=== PATIENT | female | born 1985 | race African-American/Black ===

== ENCOUNTER 2017-06-22 19:21 | Emergency (ER) | payer OTHER ==
[~2017-06-22] VITALS: Ht 165.1 cm; Wt 70.0 kg
[~2017-06-22 19:21] MED LIST: CIPR500T4 PO; NAPR550 PO; NEEVCAP PO; OXYC-360 PO; PYRI200T4 PO; SENN1TAB11 PO
[2017-06-22] MEDS ORDERED: diphenhydrAMINE HCL 50 MG/ML VIAL IM ONE (19:45)
[2017-06-22] MEDS ORDERED: LORazepam 2 MG/ML VIAL IM ONE (19:45)
--- NOTE | 2017-06-22 20:01 | PD ---
HPI Chief Complaint: Psychiatric Symptoms Time Seen by Provider: 19:25 Travel History International Travel<30 days: No Contact w/Intl Traveler<30days: No Traveled to known affect area: No History of Present Illness HPI 31-year-old female that presents to the ED for evaluation of a crack. Per Ellis act patient apparently going he did argument with family members and started to become very aggressive towards family members. Police was involved in patient was Caleb acted because she was very agitated and aggressive towards family as well as to worse police. Patient had to be restrained and on her way here she hit her head on the window of the Car. She did not lose consciousness. She does have a very superficial cut to her head. On exam she would not really give me any information alert and she is upset because she is going to lose her job because she is here. She does not appear to have any sign of injury other than the head where she has a small bruise and a superficial cut. She denies any homicidal or suicidal ideation. She is distraught and cannot really give me much information. She denies any other medical issues. Again history is limited because the patient being very upset. PFSH Past Medical History Diminished Hearing: No Genitourinary: Yes (STD) ?: Not Past Surgical History Abdominal Surgery: Yes (c- section) Section: Yes Social History Alcohol Use: Yes (socially) Tobacco Use: Yes Substance Use: Yes (marijuana) Allergies-Medications (Allergen,Severity, Reaction): Coded Allergies: No Known Allergies (Verified , 09/06/15) Reported Meds & Prescriptions Reported Meds & Active Scripts Active Pyridium (Phenazopyridine HCl) 200 Mg Tab 200 Mg PO Q8HR PRN Cipro (Ciprofloxacin HCl) 500 Mg Tab 500 Mg PO BID 7 Days Reported Percocet (Oxycodone/Acetaminophen) 5 Mg/325 Mg Tab 1-2 Tab PO Q4-6HPRN FOR PAIN Senna Plus 8.6-50 mg (Senna/Docusate Sodium) 1 Tab Tab 1 Tab PO BIDPRN Anaprox Ds (Naproxen Sodium) 550 Mg Tab 550 Mg PO Q8HPRN 30 Days Pnv-Dha Plus ( Without A W/ Fe Fumar) Cap 1 PO DAILY Review of Systems ROS Limitations: Uncooperative Except as stated in HPI: all other systems reviewed are Neg Physical Exam Exam Limitations: Uncooperative Narrative GENERAL: SKIN: Warm and dry. Patient has some bruising and a very superficial less than 1 cm laceration to her forehead that is very superficial and less than 1 mm deep HEAD: Atraumatic. Normocephalic. EYES: Pupils equal and round 4 mm reactive to light and accommodation. No scleral icterus. No injection or drainage. ENT: No nasal bleeding or discharge. Mucous membranes pink and moist. Tongue is midline. No uvula deviation. NECK: Trachea midline. No JVD. CARDIOVASCULAR: Regular rate and rhythm. No murmurs, S3, S4. RESPIRATORY: No accessory muscle use. Clear to auscultation. Breath sounds equal bilaterally. GASTROINTESTINAL: Abdomen soft, non-tender, nondistended. Hepatic and splenic margins not palpable. MUSCULOSKELETAL: Extremities without clubbing, cyanosis, or edema. No obvious deformities. Full range of motion of the upper and lower extremities bilaterally. 2+ pulses bilaterally. NEUROLOGICAL: Awake and alert. No obvious cranial nerve deficits. Motor grossly within normal limits. Five out of 5 muscle strength in the arms and legs. Normal speech. PSYCHIATRIC: Very anxious mood and affect; insight and judgment questionable Data Data Last Documented VS Vital Signs Date Time Temp Pulse Resp B/P (MAP) Pulse Ox O2 Delivery O2 Flow Rate FiO2 06/22/17 21:08 98.4 87 18 128/60 (82) 98 Room Air Orders Orders Complete Blood Count With Diff (06/22/17 19:24) Comprehensive Metabolic Panel (06/22/17 19:24) Thyroid Stimulating Hormone (06/22/17 19:24) Psych Screen (06/22/17 19:24) Drug Screen, Random Urine (06/22/17 19:24) Alcohol (Ethanol) (06/22/17 19:24) Salicylates (Aspirin) (06/22/17 19:24) Tylenol (Acetaminophen) (06/22/17 19:24) Ct Brain W/O Iv Contrast(Rout) (06/22/17 ) Lorazepam Inj (Ativan Inj) (06/22/17 19:45) Diphenhydramine Inj (Benadryl Inj) (06/22/17 19:45) Restraints Violent (06/22/17 19:34) Ed Urine Pregnancytest Poc (06/22/17 20:00) Haloperidol Inj (Haldol Inj) (06/22/17 21:45) Labs Laboratory Tests Test 06/22/17 20:01 06/22/17 21:10 Urine Opiates Screen NEG Urine Barbiturates Screen NEG Urine Amphetamines Screen NEG Urine Benzodiazepines Screen NEG Urine Cocaine Screen NEG Urine Cannabinoids Screen POS White Blood Count 9.3 TH/MM3 Red Blood Count 3.98 MIL/MM3 Hemoglobin 11.7 GM/DL Hematocrit 34.9 % Mean Corpuscular Volume 87.7 FL Mean Corpuscular Hemoglobin 29.4 PG Mean Corpuscular Hemoglobin Concent 33.6 % Red Cell Distribution Width 12.7 % Platelet Count 222 TH/MM3 Mean Platelet Volume 8.1 FL Neutrophils (%) (Auto) 81.0 % Lymphocytes (%) (Auto) 12.0 % Monocytes (%) (Auto) 6.6 % Eosinophils (%) (Auto) 0.1 % Basophils (%) (Auto) 0.3 % Neutrophils # (Auto) 7.6 TH/MM3 Lymphocytes # (Auto) 1.1 TH/MM3 Monocytes # (Auto) 0.6 TH/MM3 Eosinophils # (Auto) 0.0 TH/MM3 Basophils # (Auto) 0.0 TH/MM3 CBC Comment DIFF FINAL Differential Comment Blood Urea Nitrogen 11 MG/DL Creatinine 1.06 MG/DL Random Glucose 74 MG/DL Total Protein 7.5 GM/DL Albumin 3.9 GM/DL Calcium Level 8.7 MG/DL Alkaline Phosphatase 68 U/L Aspartate Amino Transf (AST/SGOT) 32 U/L Alanine Aminotransferase (ALT/SGPT) 22 U/L Total Bilirubin 0.4 MG/DL Sodium Level 142 MEQ/L Potassium Level 3.5 MEQ/L Chloride Level 109 MEQ/L Carbon Dioxide Level 21.9 MEQ/L Anion Gap 11 MEQ/L Estimat Glomerular Filtration Rate 74 ML/MIN Thyroid Stimulating Hormone 3rd Gen 1.640 uIU/ML Salicylates Level 2.4 MG/DL Acetaminophen Level LESS THAN 2.0 MCG/ML Ethyl Alcohol Level 25 MG/DL MDM Medical Decision Making Medical Screen Exam Complete: Yes Emergency Medical Condition: Yes Medical Record Reviewed: Yes Interpretation(s) CBC & BMP Diagram 06/22/17 21:10 Total Protein 7.5, Albumin 3.9, Calcium Level 8.7, Alkaline Phosphatase 68, Aspartate Amino Transf (AST/SGOT) 32, Alanine Aminotransferase (ALT/SGPT) 22, Total Bilirubin 0.4 Differential Diagnosis Depression versus suicidal ideation versus anxiety versus adjustment disorder versus mood disorder versus bipolar disorder versus schizophrenia versus paranoid disorder versus psychosis versus substance abuse versus alcohol abuse versus alcohol induced psychosis versus homicidality addition versus cutting versus personality disorder Narrative Course 31-year-old female that presents to the ED for evaluation of psych. Patient was properly examined and was found to have signs and symptoms consistent with psychiatric illness. Unclear etiology as patient has never been here before. She would not really give me any good history. She does appear to be very upset about the whole situation. Per police report apparently they found a crack pipe around her. Unclear if polysubstance abuse. At this time I do recommend imaging and labs. Patient had to be restrained secondary to trying to leave because of agitation towards staff. Patient was given Ativan and Benadryl to calm her down. Patient was evaluated by me and appears to have no signs of acute distress alert and her active psychiatric disease. Patient will be medically clear pending labs. Okay to be seen by psych. Mental health screening was discussed with the patient. Diagnosis Primary Impression: Agitation Montez Chiang Jun 22, 2017 20:01
[2017-06-22 21:08] VITALS: BP 128/60; PULSE 87; RESP 18; TEMP 98.4; O2SAT 98
[2017-06-22 21:37] LABS: AUTOMATED NEUTROPHIL # 7.6 TH/MM3 (1.8-7.7); BASOPHIL % 0.3 % (0.0-2.0); EOSINOPHIL % 0.1 % (0.0-4.0); HEMATOCRIT 34.9 % (35.0-46.0); HEMOGLOBIN 11.7 GM/DL (11.6-15.3); LYMPHOCYTE # 1.1 TH/MM3 (1.0-4.8); MEAN CELL VOLUME 87.7 FL (80.0-100.0); MEAN CORPUSCULAR HEMOGLOBIN 29.4 PG (27.0-34.0); MEAN CORPUSCULAR HGB CONC 33.6 % (32.0-36.0); MEAN PLATELET VOLUME 8.1 FL (7.0-11.0); MONO % 6.6 % (0.0-8.0); MONOCYTE # 0.6 TH/MM3 (0-0.9); PLATELET COUNT 222 TH/MM3 (150-450); RED BLOOD COUNT 3.98 MIL/MM3 (4.00-5.30); RED CELL DISTRIBUTION WIDTH 12.7 % (11.6-17.2); WHITE BLOOD COUNT 9.3 TH/MM3 (4.0-11.0)
[2017-06-22 21:42] LABS: ALBUMIN 3.9 GM/DL (3.4-5.0); BICARBONATE 21.9 MEQ/L (21.0-32.0); BLOOD UREA NITROGEN 11 MG/DL (7-18); CALCIUM 8.7 MG/DL (8.5-10.1); CHLORIDE 109 MEQ/L (98-107); CREATININE 1.06 MG/DL (0.50-1.00); GLOMERULAR FILTRATION RATE 74 ML/MIN (>89); GLUCOSE,RANDOM 74 MG/DL (74-106); SODIUM (NA) 142 MEQ/L (136-145)
[2017-06-22 21:43] LABS: AST (GOT) 32 U/L (15-37)
[2017-06-22] MEDS ORDERED: HALOPERIDOL LACTATE 5 MG/ML AMP IM ONE (21:45)
[2017-06-22 21:53] LABS: ALKALINE PHOSPHATASE 68 U/L (45-117); ALT (GPT) 22 U/L (10-53); TOTAL BILIRUBIN ADULT 0.4 MG/DL (0.2-1.0); TOTAL PROTEIN 7.5 GM/DL (6.4-8.2)
[2017-06-22 22:04] LABS: ACETAMINOPHEN LESS THAN 2.0 MCG/ML (10.0-30.0)
--- NOTE | 2017-06-22 23:46 | RADRPT ---
EXAM DATE/TIME: 06/22/2017 23:17 [facility] COMPARISON: No previous studies available for comparison. INDICATIONS : Trauma. Hit head on police car. RADIATION DOSE: 56.34 CTDIvol (mGy) MEDICAL HISTORY : None SURGICAL HISTORY : section. ENCOUNTER: Initial ACUITY: 1 day PAIN SCALE: 5/10 LOCATION: cranial TECHNIQUE: Multiple contiguous axial images were obtained of the head. Using automated exposure control and adj ustment of the mA and/or kV according to patient size, radiation dose was kept as low as reasonably a chievable to obtain optimal diagnostic quality images. DICOM format image data is available electro nically for review and comparison. FINDINGS: CEREBRUM: The ventricles are normal for age. No evidence of midline shift, mass lesion, hemorrhage or acute in farction. No extra-axial fluid collections are seen. POSTERIOR FOSSA: The cerebellum and brainstem are intact. The 4th ventricle is midline. The cerebellopontine angle i s unremarkable. EXTRACRANIAL: The visualized portion of the orbits is intact. SKULL: The calvaria is intact. No evidence of skull fracture. CONCLUSION: Negative exam. No acute intracranial process, trauma or fracture. Frandy Hill MD on June 22, 2017 at 23:37 Board Certified Radiologist. This report was verified electronically.
[2017-06-23 00:25] VITALS: BP 102/56; PULSE 87; RESP 18; TEMP 99.3; O2SAT 100
--- NOTE | 2017-06-23 01:51 | PD ---
Physical Exam Time Seen by Provider: 01:51 Narrative Please refer to previous providers documentation for details surrounding the patient's current visit. Data Data Last Documented VS Vital Signs Date Time Temp Pulse Resp B/P (MAP) Pulse Ox O2 Delivery O2 Flow Rate FiO2 06/23/17 00:25 99.3 87 18 102/56 (71) 100 Room Air Orders Orders Complete Blood Count With Diff (06/22/17 19:24) Comprehensive Metabolic Panel (06/22/17 19:24) Thyroid Stimulating Hormone (06/22/17 19:24) Psych Screen (06/22/17 19:24) Drug Screen, Random Urine (06/22/17 19:24) Alcohol (Ethanol) (06/22/17 19:24) Salicylates (Aspirin) (06/22/17 19:24) Tylenol (Acetaminophen) (06/22/17 19:24) Ct Brain W/O Iv Contrast(Rout) (06/22/17 ) Lorazepam Inj (Ativan Inj) (06/22/17 19:45) Diphenhydramine Inj (Benadryl Inj) (06/22/17 19:45) Restraints Violent (06/22/17 19:34) Ed Urine Pregnancytest Poc (06/22/17 20:00) Haloperidol Inj (Haldol Inj) (06/22/17 21:45) Labs Laboratory Tests Test 06/22/17 20:01 06/22/17 21:10 Urine Opiates Screen NEG Urine Barbiturates Screen NEG Urine Amphetamines Screen NEG Urine Benzodiazepines Screen NEG Urine Cocaine Screen NEG Urine Cannabinoids Screen POS White Blood Count 9.3 TH/MM3 Red Blood Count 3.98 MIL/MM3 Hemoglobin 11.7 GM/DL Hematocrit 34.9 % Mean Corpuscular Volume 87.7 FL Mean Corpuscular Hemoglobin 29.4 PG Mean Corpuscular Hemoglobin Concent 33.6 % Red Cell Distribution Width 12.7 % Platelet Count 222 TH/MM3 Mean Platelet Volume 8.1 FL Neutrophils (%) (Auto) 81.0 % Lymphocytes (%) (Auto) 12.0 % Monocytes (%) (Auto) 6.6 % Eosinophils (%) (Auto) 0.1 % Basophils (%) (Auto) 0.3 % Neutrophils # (Auto) 7.6 TH/MM3 Lymphocytes # (Auto) 1.1 TH/MM3 Monocytes # (Auto) 0.6 TH/MM3 Eosinophils # (Auto) 0.0 TH/MM3 Basophils # (Auto) 0.0 TH/MM3 CBC Comment DIFF FINAL Differential Comment Blood Urea Nitrogen 11 MG/DL Creatinine 1.06 MG/DL Random Glucose 74 MG/DL Total Protein 7.5 GM/DL Albumin 3.9 GM/DL Calcium Level 8.7 MG/DL Alkaline Phosphatase 68 U/L Aspartate Amino Transf (AST/SGOT) 32 U/L Alanine Aminotransferase (ALT/SGPT) 22 U/L Total Bilirubin 0.4 MG/DL Sodium Level 142 MEQ/L Potassium Level 3.5 MEQ/L Chloride Level 109 MEQ/L Carbon Dioxide Level 21.9 MEQ/L Anion Gap 11 MEQ/L Estimat Glomerular Filtration Rate 74 ML/MIN Thyroid Stimulating Hormone 3rd Gen 1.640 uIU/ML Salicylates Level 2.4 MG/DL Acetaminophen Level LESS THAN 2.0 MCG/ML Ethyl Alcohol Level 25 MG/DL [facility] Medical Record Reviewed: Yes Supervised Visit with QUEENIE: No Narrative Course Patient was signed out to me with CT imaging pending. This is reviewed and negative for acute intracranial abnormality. Patient is medically cleared to undergo psychiatric screening for further evaluation and disposition. Mental health screening discussed with the patient. Psychiatric screen ordered. Diagnosis Primary Impression: Agitation Condition: Stable Chelly Mae Jun 23, 2017 01:51
--- NOTE | 2017-06-23 12:25 | PD ---
Physical Exam Time Seen by Provider: 12:23 Cuba Fuller has evaluated the patient, lifted the Ellis act and cleared the patient for discharge. Data Data Last Documented VS Vital Signs Date Time Temp Pulse Resp B/P (MAP) Pulse Ox O2 Delivery O2 Flow Rate FiO2 06/23/17 06:21 06/23/17 00:25 99.3 87 18 100 Room Air Orders Orders Complete Blood Count With Diff (06/22/17 19:24) Comprehensive Metabolic Panel (06/22/17 19:24) Thyroid Stimulating Hormone (06/22/17 19:24) Psych Screen (06/22/17 19:24) Drug Screen, Random Urine (06/22/17 19:24) Alcohol (Ethanol) (06/22/17 19:24) Salicylates (Aspirin) (06/22/17 19:24) Tylenol (Acetaminophen) (06/22/17 19:24) Ct Brain W/O Iv Contrast(Rout) (06/22/17 ) Lorazepam Inj (Ativan Inj) (06/22/17 19:45) Diphenhydramine Inj (Benadryl Inj) (06/22/17 19:45) Restraints Violent (06/22/17 19:34) Ed Urine Pregnancytest Poc (06/22/17 20:00) Haloperidol Inj (Haldol Inj) (06/22/17 21:45) Diet Regular Basic (06/23/17 Breakfast) Labs Laboratory Tests Test 06/22/17 20:01 06/22/17 21:10 Urine Opiates Screen NEG Urine Barbiturates Screen NEG Urine Amphetamines Screen NEG Urine Benzodiazepines Screen NEG Urine Cocaine Screen NEG Urine Cannabinoids Screen POS White Blood Count 9.3 TH/MM3 Red Blood Count 3.98 MIL/MM3 Hemoglobin 11.7 GM/DL Hematocrit 34.9 % Mean Corpuscular Volume 87.7 FL Mean Corpuscular Hemoglobin 29.4 PG Mean Corpuscular Hemoglobin Concent 33.6 % Red Cell Distribution Width 12.7 % Platelet Count 222 TH/MM3 Mean Platelet Volume 8.1 FL Neutrophils (%) (Auto) 81.0 % Lymphocytes (%) (Auto) 12.0 % Monocytes (%) (Auto) 6.6 % Eosinophils (%) (Auto) 0.1 % Basophils (%) (Auto) 0.3 % Neutrophils # (Auto) 7.6 TH/MM3 Lymphocytes # (Auto) 1.1 TH/MM3 Monocytes # (Auto) 0.6 TH/MM3 Eosinophils # (Auto) 0.0 TH/MM3 Basophils # (Auto) 0.0 TH/MM3 CBC Comment DIFF FINAL Differential Comment Blood Urea Nitrogen 11 MG/DL Creatinine 1.06 MG/DL Random Glucose 74 MG/DL Total Protein 7.5 GM/DL Albumin 3.9 GM/DL Calcium Level 8.7 MG/DL Alkaline Phosphatase 68 U/L Aspartate Amino Transf (AST/SGOT) 32 U/L Alanine Aminotransferase (ALT/SGPT) 22 U/L Total Bilirubin 0.4 MG/DL Sodium Level 142 MEQ/L Potassium Level 3.5 MEQ/L Chloride Level 109 MEQ/L Carbon Dioxide Level 21.9 MEQ/L Anion Gap 11 MEQ/L Estimat Glomerular Filtration Rate 74 ML/MIN Thyroid Stimulating Hormone 3rd Gen 1.640 uIU/ML Salicylates Level 2.4 MG/DL Acetaminophen Level LESS THAN 2.0 MCG/ML Ethyl Alcohol Level 25 MG/DL MDM Supervised Visit with QUEENIE: No Narrative Course Alina has evaluated the patient, lifted the Caleb act and cleared the patient for discharge. Patient contracts safety. Denies suicidal or homicidal ideations. Patient will be provided community resource packet to /[facility] for follow-up. Has friends and family for support. Patient was medically cleared by alternate provider prior to psych screening. Patient has been evaluated by psychiatry and and is now cleared for discharge. Diagnosis Primary Impression: Adjustment disorder Qualified Codes: F43.20 - Adjustment disorder, unspecified Referrals: [facility] (Out patient) [facility] Primary Care Physician Psychiatrist [facility] Patient Instructions: General Instructions, Mood Disorders (ED) Additional Instruction: Contract safety to your self and others Follow-up with psychiatry Follow-up with primary care provider Follow-up with Jase Antunez Return to the emergency department immediately with worsening of symptoms Med/Other Pt SpecificInfo: No Change to Meds, No Meds Exist/No RX given Disposition: 01 DISCHARGE HOME Condition: Stable RachaeljeanneMl Jun 23, 2017 12:25
--- NOTE | 2017-06-23 12:28 | PD ---
History of Present Illness Chief Complaint: Psychiatric Symptoms Time Seen by Provider: 12:15 Travel History International Travel<30 Days: No Contact w/Intl Traveler<30days: No Known affected area: No Legal Status Legal Status: Ellis Act Ellis Act Signed By: KELSIE GARCIA Ellis Act Comment: 06/22/2017 1823 OTILIOMelissa TORRES #[id number] C/N [id number] History of Present Illness: History of Present Illness HPI 31-year-old, -Polish, female with no reported psychiatric history that presents to the ED under Ellis act initiated by law enforcement. Per Ellis act patient apparently going he did argument with family members and started to become very aggressive towards family members. Patient had to be restrained and on her way here she hit her head on the window of the Car. The report also alleges that she verbalized that she wanted to kill herself and that she would do so when after she was discharged. The patient did not present any suicidality while under observation in the emergency department. EMR is reviewed. No previous contact with [facility] psychiatry. Current toxicology is negative for all substances of abuse. Patient is seen. She is dressed in T-shirt and shorts. She is maintaining basic hygiene. She is alert, oriented, calm and cooperative. Her speech is clear, logical, goal directed and of normal rate and tone. There is no evidence of any thought process or thought content disorder. Mood is euthymic. Patient denies any suicidal or homicidal ideation, intent or plan. She states that she was involved in a verbal confrontation with her and when the police arrived she felt like she was being antagonized by them. She admits to feeling very angry and fighting back with the police. She adamantly, once again, denies any suicidal ideation or having said anything about wanting to end her life. She is future oriented and actually has been asking to be discharged because she has a doctor's appointment today and clear him on as well as has an appointment at [facility]. Remainder of psychiatric review of systems is negative [facility] Past Medical History Diminished Hearing: No Genitourinary: Yes (STD) ?: Not Past Surgical History Abdominal Surgery: Yes (c- section) Section: Yes Psychiatric History Psychiatric History Hx Psychiatric Treatment: Denies any. No previous suicide attempt. No history of self-injurious behavior History of Inpatient Treatment: No Guns or firearms in home: No Social History , has 2 children, lives with her and the children. Has a history of arrest for trafficking and served 3 years in [facility] Hx Alcohol Use: Yes (socially) Hx Tobacco Use: Yes Hx Substance Use: Yes (marijuana) Substance Use Type: Nicotine/Cigarettes Hx of Substance Use Treatment: No Family Psychiatric History Negative Allergies-Medications (Allergen,Severity, Reaction): Coded Allergies: No Known Allergies (Verified , 09/06/15) Reported Meds & Prescriptions Reported Meds & Active Scripts Active Pyridium (Phenazopyridine HCl) 200 Mg Tab 200 Mg PO Q8HR PRN Cipro (Ciprofloxacin HCl) 500 Mg Tab 500 Mg PO BID 7 Days Reported Percocet (Oxycodone/Acetaminophen) 5 Mg/325 Mg Tab 1-2 Tab PO Q4-6HPRN FOR PAIN Senna Plus 8.6-50 mg (Senna/Docusate Sodium) 1 Tab Tab 1 Tab PO BIDPRN Anaprox Ds (Naproxen Sodium) 550 Mg Tab 550 Mg PO Q8HPRN 30 Days Pnv-Dha Plus ( Without A W/ Fe Fumar) Cap 1 PO DAILY Review of Systems Psychiatric: DENIES: Anxiety, Confusion, Mood changes, Depression, Hallucinations, Agitation, Suicidal Ideation, Homicidal Ideation, Delusions Except as stated in HPI: all other systems reviewed are Neg Mental Status Examination Appearance: Appropriate Consciousness: Alert Orientation: x4 Motor Activity: Normal gait Speech: Unremarkable Language: Adequate Fund of Knowledge: Adequate Attention and Concentration: Adequate Memory: Unremarkable Mood: Appropriate Affect: Appropriate Thought Process & Associations: Intact, Logical, Goal directed Thought Content: Appropriate Hallucination Type: None Delusion Type: None Suicidal Ideation: No Suicidal Plan: No Suicidal Intention: No Homicidal Ideation: No Homicidal Plan: No Homicidal Intention: No Insight: Fair Judgment: Impulsive MDM Medical Decision Making Medical Record Reviewed: Yes Assessment/Plan History of Present Illness HPI 31-year-old, -Polish, female with no reported psychiatric history that presents to the ED under Ellis act initiated by law enforcement. Per Ellis act patient apparently going he did argument with family members and started to become very aggressive towards family members. Patient had to be restrained and on her way here she hit her head on the window of the Car. The report also alleges that she verbalized that she wanted to kill herself and that she would do so when after she was discharged. The patient did not present any suicidality while under observation in the emergency department. Patient presents no evidence of any unstable mental illness has defined under the Ellis act. She is cognitively intact. She is future oriented as well. At this time the Ellis act will be lifted. Psychiatrically clear for discharge from the ED. Orders Orders Complete Blood Count With Diff (06/22/17 19:24) Comprehensive Metabolic Panel (06/22/17 19:24) Thyroid Stimulating Hormone (06/22/17 19:24) Psych Screen (06/22/17 19:24) Drug Screen, Random Urine (06/22/17 19:24) Alcohol (Ethanol) (06/22/17 19:24) Salicylates (Aspirin) (06/22/17 19:24) Tylenol (Acetaminophen) (06/22/17 19:24) Ct Brain W/O Iv Contrast(Rout) (06/22/17 ) Lorazepam Inj (Ativan Inj) (06/22/17 19:45) Diphenhydramine Inj (Benadryl Inj) (06/22/17 19:45) Restraints Violent (06/22/17 19:34) Ed Urine Pregnancytest Poc (06/22/17 20:00) Haloperidol Inj (Haldol Inj) (06/22/17 21:45) Diet Regular Basic (06/23/17 Breakfast) Ed Discharge Order (06/23/17 12:25) Results Vital Signs Date Time Temp Pulse Resp B/P (MAP) Pulse Ox O2 Delivery O2 Flow Rate FiO2 06/23/17 12:24 06/23/17 06:21 06/23/17 00:25 99.3 87 18 102/56 (71) 100 Room Air 06/22/17 21:08 98.4 87 18 128/60 (82) 98 Room Air Laboratory Tests Test 06/22/17 20:01 06/22/17 21:10 Urine Opiates Screen NEG Urine Barbiturates Screen NEG Urine Amphetamines Screen NEG Urine Benzodiazepines Screen NEG Urine Cocaine Screen NEG Urine Cannabinoids Screen POS White Blood Count 9.3 Red Blood Count 3.98 Hemoglobin 11.7 Hematocrit 34.9 Mean Corpuscular Volume 87.7 Mean Corpuscular Hemoglobin 29.4 Mean Corpuscular Hemoglobin Concent 33.6 Red Cell Distribution Width 12.7 Platelet Count 222 Mean Platelet Volume 8.1 Neutrophils (%) (Auto) 81.0 Lymphocytes (%) (Auto) 12.0 Monocytes (%) (Auto) 6.6 Eosinophils (%) (Auto) 0.1 Basophils (%) (Auto) 0.3 Neutrophils # (Auto) 7.6 Lymphocytes # (Auto) 1.1 Monocytes # (Auto) 0.6 Eosinophils # (Auto) 0.0 Basophils # (Auto) 0.0 CBC Comment DIFF FINAL Differential Comment Blood Urea Nitrogen 11 Creatinine 1.06 Random Glucose 74 Total Protein 7.5 Albumin 3.9 Calcium Level 8.7 Alkaline Phosphatase 68 Aspartate Amino Transf (AST/SGOT) 32 Alanine Aminotransferase (ALT/SGPT) 22 Total Bilirubin 0.4 Sodium Level 142 Potassium Level 3.5 Chloride Level 109 Carbon Dioxide Level 21.9 Anion Gap 11 Estimat Glomerular Filtration Rate 74 Thyroid Stimulating Hormone 3rd Gen 1.640 Salicylates Level 2.4 Acetaminophen Level LESS THAN 2.0 Ethyl Alcohol Level 25 Diagnosis Primary Impression: Adjustment disorder Psychiatrically Cleared: Yes Referrals: [facility] (Out patient) [facility] [address] Primary Care Physician Psychiatrist [facility] Departure Forms: Tests/Procedures Patient Instructions: General Instructions, Mood Disorders (ED) Additional Instructions: Contract safety to your self and others Follow-up with psychiatry Follow-up with primary care provider Follow-up with Jase Antunez Return to the emergency department immediately with worsening of symptoms Disposition: 01 DISCHARGE HOME Condition: Stable Problem Qualifiers Primary Impression: Adjustment disorder Qualified Codes: F43.25 - Adjustment disorder with mixed disturbance of emotions and conduct Alina Aparicio [facility] Jun 23, 2017 12:28
== END 2017-06-23 12:56 | disposition home or self-care (01) ==
LOC: NEPJ 19:21
DX: F43.25 Adjustment disorder with mixed disturbance of emotions and conduct (principal); F12.90 Cannabis use, unspecified, uncomplicated; Z79.899 Other long term (current) drug therapy; Z72.0 Tobacco use
CPT/HCPCS: 70450; 80053; 80307; 84443; 84703; 85025; 96372; 99285; J1200; J1630; J2060